=== PATIENT | male | born 2000 | race Two or more races ===

== ENCOUNTER 2022-08-23 01:32 | Emergency (ER) | payer OTHER ==
[~2022-08-23] VITALS: Ht 167.6 cm; Wt 61.1 kg
[2022-08-23 01:49] VITALS: BP 127/84
== END 2022-08-23 07:15 | disposition left against medical advice (07) ==
LOC: ER 01:32
DX: R11.2 Nausea with vomiting, unspecified (principal); R19.7 Diarrhea, unspecified; Z53.21 Procedure and treatment not carried out due to patient leaving prior to being seen by health care provider